=== PATIENT | male | born 1955 | race Caucasian/White ===

== ENCOUNTER 2020-02-07 09:52 | Inpatient (IN) | payer SELFPAY ==
[2020-02-07] VITALS (24 sets, daily range): BP systolic 55–121; BP diastolic 32–84; PULSE 114–130; RESP 20–52; TEMP 36.4–36.9; O2SAT 90–98; BMI 20.7
--- NOTE | 2020-02-07 09:53 | XRR_ITS ---
PROCEDURE INFORMATION: Exam: XR Chest, 1 View Exam date and time: 02/07/2020 9:55 AM Age: 64 years old Clinical indication: Chest pain; Type not specified TECHNIQUE: Imaging protocol: XR of the chest Views: Frontal portable upright view of the chest. COMPARISON: No relevant prior studies available. FINDINGS: Lungs: The lungs are clear bilaterally. The pulmonary vasculature is normal. Pleural space: No pleural effusion. No pneumothorax. Heart/Mediastinum: The heart is normal in size and contour. Bones/joints: No acute chest wall abnormality identified. XR/XR chest 1V portable 12034 IMPRESSION: No acute cardiopulmonary abnormality identified.
--- NOTE | 2020-02-07 09:54 | ECG_ITS ---
Measurements Intervals [place] Rate: 117 P: 77 CO: 128 QRS: 52 QRSD: 100 T: -42 QT: 341 QTc: 477 SINUS TACHYCARDIA POSSIBLE LEFT ATRIAL ENLARGEMENT [-0.1mV P WAVE IN V1/V2] INFERIOR MYOCARDIAL INFARCTION , PROBABLY RECENT [40+ ms Q WAVE AND/OR ST/T ABNO ABNORMALITY IN II/aVF] ACUTE AR INTERPRETATION BASED ON A DEFAULT AGE OF 40 YEARS No previous ECG available for comparison Electronically Signed On 02-07-2020 21:11:23 CDT by Maria Antonia Strange M.D. [email or web address]
[2020-02-07 10:03] LABS: ABG PCO2 30.1 mmHg (35-45); Alveolar-Arterial Oxygen Gradi 46.6 mmHg (5-10); Arterial Blood Gas Hematocrit 45.9 % (42-52); Base Excess ABG -5.1 mmol/L (-2.0-2.0); Blood Gas Allen Test Pos; Blood Gas Sample Site Radial, right; Blood Gas Sample Type Arterial; Carboxyhemoglobin 1.1 %THgb (0.4-20.1); HCO3 ABG 18.5 mmol/L (22-26); HGB O2 Sat 91.2 % (95-100); Ionized Calcium Level - ABG 1.1 mmol/L (1.1-1.4); Oxygen Device NC; Oxygen Saturation ABG 93.1; PO2 ABG 64.4 mmHg (80.0-100.0); Potassium Level - ABG 4.5 mmol/L (3.5-5.0)
--- NOTE | 2020-02-07 10:03 | W.ED.CHESTPA ---
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 He said it began yesterday at around 12 or 1230 and has been getting progressively worse until this morning when it got so bad he called EMS. Pain is in his left substernal chest area radiating to his shoulder he is short of breath with it and nauseous, he has thrown up at least once. He has no known history of coronary disease he is not a diabetic he is a lifelong smoker, no known history of hypertension or hyperlipidemia. He is not previously had any evaluation for chest pain or coronary artery disease. Does not take aspirin regularly.He is not on any anticoagulants. He denies any recent illness any recent significant change in cough or fever or upper respiratory symptoms, he does have a chronic baseline cough that he relates to his smoking. MD complaint: chest pain Onset (ago): day(s) (1 day) Timing of current episode: constant, increasing and still present Prior episodes: No Onset: during rest Pain location: substernal and left chest Quality: tightness Relieving factors: nothing Exacerbating factors: nothing Associated symptoms: Reports nausea and vomiting; Deny dyspnea or fever(s) Treatment prior to arrival: nitroglycerin (EMS gave 1 sublingual nitro noted a market drop in blood pressure, there was no significant relief of pain.) Review of Systems Const: Denies: fever, chills, body aches, change in appetite, fatigue or malaise ENMT: Denies: throat pain, ear pain, nasal discharge or nasal congestion Card: Reports: chest pain and shortness of breath on exertion; Denies: edema or shortness of breath when lying down Resp: Denies: shortness of breath, productive cough or non-productive cough GI: Reports: nausea and vomiting : Denies: flank pain, painful urination, urinary frequency or urinary urgency Skin/Breast: Denies: rash or itching PFSH ED PFSH: Social History Smoking and tobacco status: current every day smoker Physical Exam Const: GENERAL APPEARANCE: cooperative; not comfortable ORIENTATION/CONSCIOUSNESS: Yes awake, Yes oriented to person, Yes oriented to place and Yes oriented to time HENMT: COMMON NORMALS: normocephalic, head/scalp atraumatic, hearing grossly normal bilaterally and external ears normal HEAD & SCALP: normocephalic and atraumatic EXTERNAL EAR: Yes external ears normal Eye: COMMON NORMALS: PERRL, EOMs intact bilaterally, conjunctivae normal and no scleral icterus CONJUNCTIVA: Yes conjunctivae normal PUPIL: Yes PERRL Neck/C-Spine: COMMON NORMALS: full ROM, no lymphadenopathy, supple and no JVD Lymph: LYMPHATIC: no lymphadenopathy noted and no lymphedema noted Resp: COMMON NORMALS: normal respiratory effort, no retractions, no use of accessory muscles and clear to auscultation bilaterally AUSCULTATION: clear to auscultation bilaterally Cardio: COMMON NORMALS: no JVD, regular rate, regular rhythm and no murmurs RATE: regular rate RHYTHM: regular rhythm GI: COMMON NORMALS: soft to palpation and no hepatosplenomegaly AUSCULTATION: Yes normoactive bowel sounds PALPATION: Yes soft, No tender, No guarding and Yes no hepatosplenomegaly Extremity: COMMON NORMALS: normal to inspection, normal capillary refill, no clubbing, cyanosis or edema, no calf tenderness and no pedal edema Neuro: SENSORIUM/ORIENTATION: Yes oriented to person, Yes oriented to place and Yes oriented to time Skin: COMMON NORMALS: no rashes or lesions noted GENERAL SKIN EXAM: no rashes or lesions noted Course Vital Signs: Vital signs: Vital Signs Temperature 97.6 F 02/07/20 10:00 Pulse Rate 117 H 02/07/20 10:00 Respiratory Rate 28 H 02/07/20 10:00 Blood Pressure 103/77 02/07/20 10:00 Pulse Oximetry 91 02/07/20 10:00 MDM - Chest Pain MDM Narrative: Medical decision making narrative: EKG shows acute inferior ST elevation [place]. Patient is being prepped to go to the Photographic Intelligence Officer. He is getting 600 to prop Plavix 4000 of heparin IVs have been started he will be given gentle fluid bolus I have talked to Dr. Marshall who is on STEMI call who is on the way to see him. Photographic Intelligence Officer has been notified. Lab Data: Labs: Lab Results 02/07/20 Range/Units 09:52 Specimen Type Arterial Sample Site Radial, right ABG pH 7.40 (7.35-7.45) ABG pCO2 30.1 L (35-45) mmHg ABG pO2 64.4 L (80.0-100.0) mmH g ABG HCO3 18.5 L (22-26) mmol/L ABG O2 Saturation 93.1 ABG Base Excess -5.1 L (-2.0-2.0) mmol/ L Roosevelt Test Pos A-a O2 Gradient 46.6 H (5-10) mmHg Hematocrit 45.9 (42-52) % Hgb O2 Saturation 91.2 L (95-100) % Carboxyhemoglobin 1.1 (0.4-20.1) %THgb Methemoglobin 1.0 (0.4-1.5) % Total Hemoglobin 15.0 (14-18) g/dL Sodium 138.0 (131-143) mmol/L Potassium 4.5 (3.5-5.0) mmol/L Glucose 217.0 H (70-115) mg/dL Ionized Calcium 1.1 (1.1-1.4) mmol/L O2 Delivery Device Nc O2 Liters/Min 2.0 % Frame Pulley Mortising Machine Operator ID [email or web address] Discharge Plan Discharge Patient Disposition: Admitted As Inpatient Clinical Impression: ST elevation myocardial infarction (STEMI), COPD (chronic obstructive pulmonary disease) Condition: Stable Prescriptions: No Action No Known Home Medications RF: 0 Coding Level of Care Code ED Tuft Machine Operator for Juniorg Isael
[2020-02-07] MEDS: heparin 5,000 unit/mL INJ 1 mL 4000 UNIT IV (10:05)
[2020-02-07] MEDS: clopidogrel 300 mg Tablet 600 MG PO (10:06)
--- NOTE | 2020-02-07 10:06 | XACV_ITS ---
Wt: 57 kg Gender: Male : 1955 Exam Priority: Routine Procedure(s): Procedure Description: Diagnostic procedure Procedure Description: PCI procedure Procedure Description: Drug Eluting Coronary Stent Procedure Description: Coronary Angiography Diagnostic Cath Status: Emergency Diagnostic Findings LM has 0% stenosis. CX has 0% stenosis. dLAD: Moderate 50% stenosis, MELODIE: 3 flow. 2nd OM: Severe 90% stenosis, MELODIE: 3 flow. pRCA: Moderate 50% stenosis, MELODIE: 3 flow. Mid Right Coronary Artery: Severe 95% stenosis, MELODIE: 2 flow. Distal Right Coronary Artery: Severe 85% stenosis, MELODIE: 2 flow. Coronary angiography shows right dominance. PCI Status: Emergency PCI Indication: STEMI - Immediate PCI for STEMI Interventional Findings Mid Right Coronary Artery: 95% stenosis treated with AB MINI TREK 2.00X20 RX BALLOON and MDT R CHILANGO 2.5X30 LETICIA. 0% residual stenosis, MELODIE: 3 flow. Distal Right Coronary Artery: 85% stenosis treated with MDT R CHILANGO 2.25X15 LETICIA. 0% residual stenosis, MELODIE: 3 flow. Conclusions #1 Normal left main #2 LAD has luminal irregularity without significant stenosis#3 LCx is nondominant small caliber vessel with obtuse marginal which is small caliber and size vessel has 90% multiple stenosis not amenable to intervention#4 RCA has mid 95-99% stenosis and distal 85% stenosis which is the culprit vessel . 64-year-old male presented with chest pain and shortness of breath. He admits to shortness of breath going on for last 2-3 days. 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 He also admits to often on chest pain with become more consistent in last 2-3 hours. Twelve-lead EKG was suggestive of mild inferior ST elevation. Denies any fever but admits to nausea and vomiting. Denies cough. He was immediately taken to the Facs Teacher. X-ray chest did not show any infiltrates. There is severe coronary artery disease with two vessel disease. Mid Right Coronary Artery was treated with Balloon and Drug Eluting Stent. Distal Right Coronary Artery was treated with Drug Eluting Stent. Recommendations 1-Return to inpatient for close monitoring and routine cath care2-Risk factor modification for secondary prevention3-Statin and aspirin 81 mg life-long, if tolerated4-Patient was pre-loaded with 600 mg of Plavix, continue Plavix 75mg p.o. daily for at least one year. We will assess at the end of one year again to continue if further or not5-Continue optimal medical management6-Follow up with Dr. Strange in four weeks and your primary care in 10 days. Interventional RX Recommendation: PCI w/o planned CABG Diagnostic RX Recommendation: PCI w/o planned CABG Pressures Phase:Rest AO : 101 mmHg / 33 mmHg ( 50 mmHg ) @ 5:46:00 AM 82 mmHg / 65 mmHg ( 73 mmHg ) @ 5:47:00 AM 45 mmHg / 38 mmHg ( 41 mmHg ) @ 5:59:00 AM 96 mmHg / 81 mmHg ( 89 mmHg ) @ 6:00:00 AM 88 mmHg / 67 mmHg ( 78 mmHg ) @ 6:01:00 AM 96 mmHg / 64 mmHg ( 78 mmHg ) @ 6:04:00 AM 70 mmHg / 49 mmHg ( 60 mmHg ) @ 6:08:00 AM 83 mmHg / 58 mmHg ( 69 mmHg ) @ 6:14:00 AM Clinical Evaluation EBL: 5mL-10mL Procedural Details Procedure Consent Obtained. Admit Source: Emergency department. Identified patient by full name and date of as verbalized by the patient/guarantor. Pre-Procedure Time Out. Does the consent match the physician's order: Yes. Accurate & Complete Informed Consent: Yes. Inpatient/Outpatient History & Physical on Chart: N/A Emergent. Visualize and Verify Site with Patient/Guarantor: N/A. Relevant Radiology Images available: N/A Emergent. The risks, benefits, and alternatives of sedation and/or procedure were discussed by physician. The patient agrees to continue. Procedure started. Correct patient, site and procedure confirmed by cath team. PERRLA. Strong, equal hand link wire fabric machine operator bilaterally. Lungs clear x 5 lobes. IV Site on Arrival: 18 gauge in the right anticubital. IV Site on Arrival: 18 gauge in the left anticubital. IV Fluids: 0.9% NaCl at KVO. 0 mL infused prior to label stitcher. Pre Procedural Pulses: right radial was 1+. Oxygen started at 2liters/min via nasal canula. bilateral groins was prepped with chloroprep then draped in the usual sterile fashion. right radial was prepped with chloroprep then draped in the usual sterile fashion. Physician notified. Baseline sample Acquired. HR: 120 BPM. Equipment: 6F - Radial. Physician arrived. Physician scrubbed in. Immediate Pre-Procedure Time Out. Correct Patient: Yes; Correct Procedure: Yes; Correct Site: Yes; Correct Patient Position: Yes; Correct Supplies: Yes; Dried Flammable Prep: Yes; Blood Products Available: Yes;. Lidocaine 1% infiltrated to the right radial. Unable to obtain radial access. MD attempting to gain access in the Femoral artery. Arterial access obtained with micropuncture set. 6 bahamian JR 4 guide catheter was inserted over the wire. Becker guidewire was advanced through the guide catheter to lesion in the mid RCA. balloon inserted. Inflation number : 1 A AB MINI TREK 2.00X20 RX BALLOON was prepped and advanced across the Mid RCA , then inflated to 8 NATHAN for 0:06 seconds. Inflation number: 2 The AB MINI TREK 2.00X20 RX BALLOON was reinflated across the Mid RCA, to 8 NATHAN for 0:05 seconds. Inflation number: 3 The AB MINI TREK 2.00X20 RX BALLOON was reinflated across the Mid RCA, to 8 NATHAN for 0:03 seconds. Inflation number: 4 The AB MINI TREK 2.00X20 RX BALLOON was reinflated across the Mid RCA, to 8 NATHAN for 0:04 seconds. Results checked, balloon out. Stent inserted. Balloon removed. Second stent inserted. Inflation Number : 5 A MDT R CHILANGO 2.5X30 LETICIA -Lot Number# [id number] was prepped and advanced across the Mid RCA. The stent was deployed at 14 NATHAN for 0:34 seconds. Inflation Number : 1 A MDT R CHILANGO 2.25X15 LETICIA -Lot Number# [id number] was prepped and advanced across the Dist RCA. The stent was deployed at 14 NATHAN for 0:14 seconds. results checked. Results checked. Wire removed. ACT drawn. Results 185 seconds. Therapeutic limits - pre-heparin administration 90-150 seconds and monitoring heparin during a vascular procedure >250 seconds. Guide removed. A JJ 6F JL4 100cm Diagnostic Catheter was advanced over the wire and used for Left coronary angiography. Multiple views taken of left coronary artery. Catheter removed. A Suture was successful obtaining hemostatsis at the Right Femoral artery insertion site. Sheath(s) sutured into position with 2-0 silk and sterile 4x4's and Op-site applied over the site. No oozing or signs and symptoms of hematoma noted. Arterial sheath flushed and connected to tranducer and pressure bag with heparinized saline. Post Procedure: Pulses reassessed and unchanged. PERRLA. Strong, equal hand link wire fabric machine operator bilaterally. No VTE prophylaxis required. Fluoro: 5:08. [id number]. Contrast type used: Omnipaque 300 mgI/mL, 500 mL bottle. Medication's Wasted: Lidocaine 1% = 10 mL. Medication's Wasted: Heparin = 2000 units. Total IV fluids: 700 mL. Medication's Wasted: Cardene 24.5 mg. PCI Indication: STEMI. Post-op diagnosis: STEMI. Complications: None. Estimated blood loss: 5mL-10mL. Procedure completed. Patient transferred by bed to ICU. Site: Right Femoral artery Sheath Size: 6 Fr Hemostasis Method: Suture Hemostasis Success: Successful Procedure Medications Start: 10:37 AM Stop: 10:37 AM Medication: Fentanyl Amount: 25 mcg Route: I.V. Start: 10:37 AM Stop: 10:37 AM Medication: Versed Amount: 1 mg Route: I.V. Start: 10:50 AM Stop: 10:50 AM Medication: Heparin Amount: 4000 units Start: 10:50 AM Stop: 10:50 AM Medication: Aggrastat 12.5 mg/250 mL Amount: 29 ml Route: I.V. bolus Start: 10:50 AM Stop: 10:50 AM Medication: Aggrastat 12.5 mg/250 mL Amount: 10.4 ml/hr Route: I.V. bolus Start: 10:58 AM Stop: 10:58 AM Medication: Epinephrine Amount: 0.5 mg Route: I.V. Start: 11:01 AM Stop: 11:01 AM Medication: Zofran (ondansetron) Amount: 4 mg Route: I.V. Start: 11:05 AM Stop: 11:05 AM Medication: Cardene Amount: 500 mcg Start: 11:09 AM Stop: 11:09 AM Medication: Fentanyl Amount: 25 mcg Route: I.V. Start: 11:12 AM Stop: 11:12 AM Medication: Heparin Amount: 3000 units Start: 11:14 AM Stop: 11:14 AM Medication: 0.9% Saline Amount: 999 ml/hr Route: I.V. drip Start: 11:22 AM Stop: 11:22 AM Medication: 0.9% Saline Route: I.VMeera flores I, the attending physician, have reviewed and verified all procedure medications. Yes, all medications given per verbal order Report Signatures Finalized by:Maria Antonia Strange MD on 02/21/2020 4:49:44 PM
[2020-02-07] MEDS: sodium chloride 0.9% 1,000 ML 999 ML IV (10:12)
[2020-02-07] MEDS: morphine 4 mg/mL SDV 1 mL IVP (10:12)
[2020-02-07] MEDS: ondansetron 2 mg/ML SDV 2 mL 4 MG IVP ×3 (10:14→18:28)
[2020-02-07 10:18] LABS: Basophils % 0.2 %; Hematocrit 44.2 % (42.0-52.0); Hemoglobin 14.2 g/dL (11.7-16.6); Lymphocytes # 0.7 10^3/uL (0.8-4.8); Lymphocytes % 3.9 %; Mean Corpuscular HGB Conc 32.1 g/dL (30.0-36.0); Mean Corpuscular Volume 96.5 fL (80-94); Mean Platelet Volume 10.4 fL (7.4-10.4); Monocytes # 1.2 10^3/uL (0.2-0.9); Monocytes % 6.7 %; Neutrophils # 16.4 10^3/uL (1.8-7.7); Neutrophils % 88.3 %; Nucleated Red Blood Cells % 0 %; Platelet Count 232 10^3/cmm (130-400); Red Blood Count 4.58 10^6/uL (4.1-5.3); Red Cell Distribution Width 13.2 % (12.1-15.1); White Blood Count 18.6 10^3/uL (4.0-10.0)
[2020-02-07 10:43] LABS: D Dimer 7.85 ug/mIFEU (0-0.59)
[2020-02-07 10:47] LABS: Alanine Aminotransferase 41 U/L (0-41); Alkaline Phosphatase 74 IU/L (40-130); Anion Gap 28.6 (5-19); Aspartate Amino Transferase 96 U/L (0-40); Blood Urea Nitrogen 29 mg/dL (8-23); Calcium 9.5 mg/dL (8.5-10.5); Carbon Dioxide 19 mmol/L (22-29); Chloride 95 mmol/L (98-107); Globulin 3.8 g/dL (1.3-4.6); Glucose 259 mg/dL (65-115); Lipase 8 U/L (13-60); Magnesium 2.1 mg/dL (1.7-2.3); Osmolality Calculated 292 mOsm/kg (285-295); Potassium 4.6 mmol/L (3.5-5.1); Sodium 138 mmol/L (136-145); Thyroid Stimulating Hormone 2.17 uIU/mL (0.27-4.20); Total Bilirubin 0.9 mg/dL (0.15-1.2); Total Protein 7.8 g/dL (6.6-8.7)
[2020-02-07 10:53] LABS: Troponin(5th) Baseline 3770 ng/mL (0-15)
--- NOTE | 2020-02-07 12:01 | P.HP_ITS ---
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 According to him for the last couple of days he was feeling nausea had episodes of vomiting denies any fever but admits to shortness of breath and cough which is not new most likely smoker. He did not pay much attention until this morning when he was driving through [place] chest pain became severe deep in the lungs as per himself therefore he decided to call 911. From the truck stop he was brought in here. D-dimer was also elevated , he was taken to the Hemming And Tacking Machine Operator. He was found to have mid and distal 100% occluded RCA treated with 2 drug-eluting stents. Patient upon presentation was hypotensive during the Hemming And Tacking Machine Operator systolic blood pressure further dropping to 60s he was given IV fluid and started on pressor. I also consulted our medicine colleagues to help us in the case, due to suspicion for pulmonary embolism we decided to continue heparin. 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 He is in mildly distressed NECK: Evaluated jugular vein distension. HEENT: No cyanosis. No icterus. No pallor. HEART: Regular S1 and S2. No murmur, rub or gallop. LUNGS: Clear to auscultate bilaterally. ABDOMEN: Soft, nontender and nondistended. Positive bowel sounds. No guarding, rebound or tenderness. CENTRAL NERVOUS SYSTEM: Grossly nonfocal. EXTREMITIES: Lower extremities without edema bilaterally. Data : 02/07/20 14:40 02/07/20 10:13 A&P Assessment and plan (1) COPD (chronic obstructive pulmonary disease): As per medicine Status: Acute Qualifiers: COPD type: COPD with acute lower respiratory infection Qualified Code(s): J44.0 - Chronic obstructive pulmonary disease with (acute) lower respiratory infection (2) ST elevation myocardial infarction (STEMI): Status post drug-eluting stents x 2 distal and mid RCA for 100% occlusion.MELODIE-3 flow was observed. Left main LAD has luminal irregularities circumflex has distal subtotal occlusion which is a small caliber vessel not amenable to intervention. Continue aspirin Plavix once blood pressure improved add beta chris Status: Acute Qualifiers: Involved coronary artery: right coronary artery Qualified Code(s): I21.11 - ST elevation (STEMI) myocardial infarction involving right coronary artery (3) Respiratory distress: Patient is highly suspicious for pulmonary embolism, tachycardic short of breath with clear lungs. We will obtain echocardiogram to assess RV strain. Cannot perform CT angiogram due to renal dysfunction. Dr. Murphy was consulted and he advised continuation of heparin drip. We also decided to send COVID 19 past since he is high risk and short of breath with respiratory symptoms. Status: Acute (4) Hypotension: Could be multifactorial including cardiogenic shock and secondary to pulmonary embolism with RV failure. Continue pressor continue IV fluid,, echocardiogram to rule out RV strain with limited views. Status: Acute Qualifiers: Hypotension type: unspecified hypotension type Qualified Code(s): I95.9 - Hypotension, unspecified (5) Acute renal failure (ARF): We are not sure patient baseline renal function. For now we will continue IV hydration, Could it be acute tubular necrosis secondary to hypotension presented with acute coronary syndrome possible. We will continue to monitor creatinine. Status: Acute Attestations Medical Necessity Statement*: I'm expecting his stay to cross more than 2 midnights Coding Level of Care Code New Pt Acute Mail Sorter for Chg Fwd Patient Type New History Detailed Exam Detailed Medical Decision Making High Complexity Diagnoses COPD (chronic obstructive pulmonary disease) J44.0 COPD type: COPD with acute lower respiratory infection ST elevation myocardial infarction (STEMI) I21.11 Involved coronary artery: right coronary artery Respiratory distress R06.03 Hypotension I95.9 Hypotension type: unspecified hypotension type Acute renal failure (ARF) N17.9
[2020-02-07 13:22] LABS: Glucose Point of Care 204 mg/dL (70-110)
--- NOTE | 2020-02-07 13:27 | USCV_ITS ---
Mahesh Parker Age: 64 Gender: M : 1955 Exam Date: 02/07/2020 16:16 Ordering Phys: Troy Schmitt MD Technologist: Dori Chiu [place]am Location[place] [facility] [place]ication: mi BP: 96 / 25 HR: Rhythm: Sinus Technical Quality: MEASUREMENTS (Male / Female) Normal Values FINDINGS Left Ventricle Mildly reduced left ventricle function.mildly decreased left ventricular systolic function. Left ventricular ejection fraction is estimated at 50 %. , flattened septum in diastole consistent with right ventricle volume overload. Patient is tachycardic Right Ventricle Mildly increased right ventricular size. Right Atrium Moderately increased right atrial size. Left Atrium Normal left atrial size. Mitral Valve Mitral valve opening and closing fine papillary muscles appeared to be intact Aortic Valve Tricuspid Valve Pulmonic Valve Pericardium Aorta CONCLUSIONS Please note that this is a limited study as patient has tachycardia and with question of Covid infection (pending result) therefore we tried to minimize the echo time 1-Mildly reduced left ventricle function.mildly decreased left ventricular systolic function. Left ventricular ejection fraction is estimated at 50 %. , flattened septum in diastole consistent with right ventricle volume overload. Patient is tachycardic. 2-Mildly increased right ventricular size. 3-Moderately increased right atrial si. 4-Mitral valve opening and closing fine papillary muscles appeared to be intact. 5-There is no pericardial effusion. 6-There are no prior echocardiogram studies to compare. Maria Antonia Strange MD (Electronically Signed) Final Date: 07 February 2020 19:38 S
[2020-02-07 13:39] LABS: Troponin 5 2HR 4054 ng/mL (0-15); Troponin 5 2HR Delta 284 ABS# (0-10)
[2020-02-07 14:49] LABS: Platelet Count 244 10^3/cmm (130-400)
[2020-02-07 15:09] LABS: Partial Thromboplastin Time 107.2 SECONDS (23.9-36.7)
--- NOTE | 2020-02-07 15:28 | P.CONIM_ITS ---
Providers/Reason For Consult Consulting Physican/Specialty*: Troy Schmitt MD Reason for Consult*: Leukocytosis Requesting Physcian: Dr. Strange Attending Physician: Maria Antonia Strange MD History of Present Illness History of Present Illness Parker Aragon is a 64 year old male presented with chest pain since noon yesterday. He points at low sternal area centrally with pleuritic component every time he coughs or breathes deeply. he was sitting when this happened. His pain is pretty much constant and lasted through the whole day yesterday and night. He denies any other alleviating or aggravating factors. He has been diaphoretic and had one episode of vomiting this morning prior to presentation. He denies hematemesis, melena or hematochezia. He has occasional non-prodictive cough mostly when laying down. 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 He has been in [place] prior to that and initially came from [facility]. He denies lower extremity edema. In ED he was diagnosed with STEMI and had 2 stents placed to RCA. He was hypotensive, tachycardic and tachypneic. He was started on Levophed gtt. During my evaluation he continues to have mild substernal chest pain unless he takes deep breath in which exacerbates his pain. Discussed with Dr. Strange and we will start Heparin gtt for possible PE, without load as he received 11k units during procedure. Hedenies any history of diabetes, heart disease or stroke. His last work related physical was in August last year. Review of Systems Narrative: except as mentioned above. Const: Denies: fever or chills Eyes: Denies: change in vision ENMT: Denies: throat pain or change in hearing Card: Reports: chest pain; Denies: edema or lightheadedness Resp: Denies: shortness of breath or productive cough GI: Reports: nausea and vomiting; Denies: abdominal pain, difficulty swallowing, diarrhea, constipation, blood in stool or black tarry stool Musc: Denies: joint pain or joint swelling Skin/Breast: Denies: rash or redness Neuro: Denies: headache or weakness in extremities Psych: Denies: depression or suicidal ideation Endo: Denies: excessive sweating Javier/Lymph: Denies: easy bleeding or tender lymph nodes All/Imm: Denies: throat swelling Meds/Allergies Home Medications and Allergies Home Medications Medication Instructions Recorded Confirmed Type No Known Home Medications 02/07/20 02/07/20 History Allergies Allergy/AdvReac Type Severity Reaction Status Date / Time No Known Allergies Allergy Verified 02/07/20 09:57 PFSH Acute PFSH: Family History (Updated 02/07/20 @ 15:59 by Troy Schmitt MD) Father CAD (coronary artery disease) Stroke Mother No problems noted. 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 Vitals/I&O/Wt Last Vital Signs Temp 98.4 F 02/07/20 12:24 Pulse 126 H 02/07/20 13:45 Resp 22 H 02/07/20 13:45 BP 98/71 02/07/20 13:45 Pulse Ox 93 02/07/20 13:45 02/07/20 02/07/20 02/07/20 06:59 14:59 22:59 Intake Total 1000 / 1000 Balance 1000 / 1000 Weight last 48 hrs Weight 60.3 kg Weight 56.699 kg Physical Exam Const: COMMON NORMALS: no apparent distress, oriented x3 and alert GENERAL APPEARANCE: diaphoretic HENMT: COMMON NORMALS: normocephalic and head/scalp atraumatic HEAD & SCALP: normocephalic and atraumatic Eye: COMMON NORMALS: EOMs intact bilaterally, conjunctivae normal and no scleral icterus CONJUNCTIVA: Yes conjunctivae normal Neck/C-Spine: COMMON NORMALS: no lymphadenopathy and no meningeal signs Lymph: LYMPHATIC: no lymphadenopathy noted Chest: COMMONS NORMALS: palpation of chest normal Resp: COMMON NORMALS: no use of accessory muscles and clear to auscultation bilaterally AUSCULTATION: clear to auscultation bilaterally Cardio: COMMON NORMALS: regular rate, regular rhythm and no murmurs JUGULAR VENOUS DISTENTION: JVD positive to the level of the earlobe RATE: regular ra te RHYTHM: regular rhythm HEART SOUNDS: normal S1 and S2 OTHER: No lower extremity edema GI: COMMON NORMALS: soft to palpation and non-tender PALPATION: Yes soft RECTAL EXAM: Yes deferred : COMMON NORMALS: Yes no CVA tenderness BLADDER/KIDNEY EXAM: Yes no CVA tenderness Back/Pelvis: COMMON NORMALS: no CVA tenderness and thoracic and lumbar spine normal to inspection Extremity: COMMON NORMALS: normal to inspection and normal capillary refill Neuro: COMMON NORMALS: oriented x3 and no focal motor deficits SENSORIUM/ORIENTATION: Yes alert MENINGEAL SIGNS: Yes no meningeal signs Psych: COMMON NORMALS: mental status grossly normal, thought process normal and cooperative THOUGHT PROCESS: normal thought process Skin: COMMON NORMALS: no rashes or lesions noted GENERAL SKIN EXAM: no rashes or lesions noted A&P Assessment and plan (1) Acute renal failure (ARF): Status: Acute (2) Hypotension: Status: Acute Qualifiers: Hypotension type: unspecified hypotension type Qualified Code(s): I95.9 - Hypotension, unspecified (3) Severe sepsis with acute organ dysfunction: Status: Acute (4) ST elevation myocardial infarction (STEMI): Status: Acute Qualifiers: Involved coronary artery: right coronary artery Qualified Code(s): I21.11 - ST elevation (STEMI) myocardial infarction involving right coronary artery Additional A&P Information Therapeutic anticoagulation. Obtain Echocardiogram, lower extremity venous US and kidney US. V/Q scan for further evaluation. Dr. Strange will evaluate echo for evidence of right heart strain and we may need to perform CTA chest despite elevated creatinine. Will start patient on antibiotics for now. Obtain blood cultures, check UA. Consult Attestations Medical Necessity Statement: Patient with sepsis and OH requires ICU. Critical Care Time: Critical Care Time (min): 20 Coding Level of Care Code Acute [employer] for [facility] Fwd Diagnoses Acute renal failure (ARF) N17.9 Hypotension I95.9 Hypotension type: unspecified hypotension type Severe sepsis with acute organ dysfunction A41.9; R65.20 ST elevation myocardial infarction (STEMI) I21.11 Involved coronary artery: right coronary artery
[2020-02-07] MEDS: heparin drip 25,000 UNIT/500 ML PREMIX 15.9 UNIT IV (15:31)
[2020-02-07 15:34] LABS: Troponin 5 6HR 4432 ng/mL (0-15); Troponin 5 6HR Delta 662 ng/L (0-12)
[2020-02-07] MEDS: sodium chloride 0.9% 1,000 ML 100 ML IV (15:35)
--- NOTE | 2020-02-07 18:06 | P.DES_ITS ---
Discharge Providers DDS Date of Admission: 02/07/20 12:02 Date Summary Completed: 02/08/20 Attending Provider at Admission: Maria Antonia Strange MD Time of : 17:36 Attending Provider at Discharge: Maria Antonia Strange MD DS Diagnoses Hospital Diagnoses (1) Acute renal failure (ARF): (2) Hypotension: Qualifiers: Hypotension type: unspecified hypotension type Qualified Code(s): I95.9 - Hypotension, unspecified (3) Severe sepsis with acute organ dysfunction: (4) ST elevation myocardial infarction (STEMI): Qualifiers: Involved coronary artery: right coronary artery Qualified Code(s): I21.11 - ST elevation (STEMI) myocardial infarction involving right coronary artery Reason for Visit Reason for Visit: Reason For Visit: Chest Pain Summary Date and Time of : Date of : 02/07/20 Time of : 17:36 Summary: Summary: This morning patient was brought to emergency room with chest pain and shortness of breath, STEMI pager was alerted, patient was immediately taken to the [facility] found to have occluded RCA in mid and distal segment treated with 2 drug- eluting stent. Post catheterization patient remained tachycardiac and short of breath. COVID 19 test was sent, patient was ordered for IV antibiotics , due to high ssuspicion of pulmonary embolism IV heparin was continued. Bedside limited echo was obtained as due to acute renal failure CTA couldn't performed. Echocardiogram showed normal size of right ventricle with moderately elevated right atrial pressure. Patient continues to sat into 90s on 2 L oxygen. For hypotension patient remains on IV fluid and Levophed, Systolic blood pressure remains around 100. Labs were sent to rule out acute bleed. In the meantime I was called by ICU nurse and overhead pager that Patient stopped breathing and went into ventricle fibrillation. When I arrived within couple of minutes, Dr. Domingo from the ER already was intubating while CPR was in progress, Please see detail in CPR document. Code was run according to ACLS protocol, Despite of more than 26 minutes of continuous code patient could not be revived. After discussion with Code team code was called off at 1736 and patient was pronounced . Cause of was cardiopulmonay arrest (Respiratory failure) I personally informed patient's daughter through phone.Awaiting COVID result for Autopsy. Additional Data: Confirmation of as documented by pronouncing clinician: no pulse, no respirations, no heart sounds and pupils fixed and dilated Family: contacted Additional persons at bedside: nursing staff Attending/PCP notified?: I am attending Was code activated?: Yes Autopsy requested?: Yes Advance directives?: No Hospice patient?: No Discharge Plan Discharge Patient Disposition: Condition: Stable Prescriptions: No Action No Known Home Medications RF: 0 Discharge Date/Time: 02/07/20 17:35 DS Attestations Time Spent in /Discharge Care*: critical care time Quality - AMI: AMI present?: Yes Quality - Stroke: CVA present?: No Symptom Onset Unknown: No Quality - VTE: VTE present?: Yes Deep Vein Thrombosis/Pulmonary Embolism Present on Admission: No Coding Level of Care Code New 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
[2020-02-07] MEDS: etomidate 10 ML 100 MG (18:29)
[2020-02-07] MEDS: succinylcholine 20 mg/mL SDV 10mL 200 MG (18:29)
[2020-02-07] MEDS: pantoprazole 40 mg SDV IVP (18:29)
--- NOTE | 2020-02-07 18:50 | PC.NURSE ---
1217 Pt arrived to the unit from the technology lab teacher. Pt placed in room 5 on isolation for r/o COVID 19. Pt AAOX3, pleasant and cooperative. Pt would not answer with a yes/no question when ask if he was having chest pain or not. Pt would say that he was uncomfortable when he was moved. Vascular checks to the right groin and and right pedal pulse [id number], all pulses were strong and palpable, skin warm/dry with no hematoma to the right groin. Pt had Levo infusing at 4mcg since arrival to the unit until code. Heparin gtt had been started as ordered at 14units/kg/hr. NS @ 100mls/hr. Sheath to right groin was patent and was used as an art line for close monitoring of his BP. This nurse was at the bedside with Yamile Blank RN attempting to draw a blood culture, talking with the pt, and both nurses repeatedly ask the pt if he was having any chest pain and he replied he was having trouble breathing. Pt resp increased to high 40's. Dr. Gray and Keshia were both in to see the pt and had left the room to discuss further treatment options for the pt. The pt stopped talking and his eyes dilated and starting quivering. Pt had been complaining of nausea and was medicated X3. Pt had been drying heaving prior to code. Pt stopped breathing at 1711 and a code was called. CPR started immediately, see code flow sheet for further details.
--- NOTE | 2020-02-07 19:01 | PC.NURSE ---
1705-- GOWNED UP TO ASSIST WITH LAB DRAW, UNALBE TO OBTAIN SPECIMEN D/T PT PULLING ARM AWAY & EXTREMITY BEING COOL TO TOUCH. BP LOW, NEEDED TO HAVE A BM, PT TACHYPNEIC, DIAPHORETIC, DENIES ANY SIGNIFICANT CHEST PAIN, JUST DISCOMFORT WITH MOVEMENT. PT VERY RESTLESS, NAUSEATED/DRY HEAVES. WHILE POSITIONING PT IN BED HE BECAME UNRESPONSIVE & NO PULSE. COMPRESSIONS STARTED. SEE CPR FLOW SHEET FOR MEDICATIONS. TIME OF 1736. JERMAIN RT & DR LINDSAY IN ROOM TO INTUBATE
--- NOTE | 2020-02-07 19:33 | PC.NURSE ---
called patients brother rosa to give the number for the propeller inspector to request the autopsy to be preformed he said he will call and let us know what they decide and was very appreciative of the information.
--- NOTE | 2020-02-07 21:15 | PC.NURSE ---
patient left with [facility] paperwork signed and filed and brother rosa notified that patient has left facility.
[2020-02-08 14:22] LABS: Coronavirus Lab Test PTC NOT DETECTED
== END 2020-02-07 17:35 | disposition expired | DRG 871 ==
LOC: ER 10:25 → ICU 12:04
PROVIDERS: Nurse Practitioner Family; Admitting Provider Internal Medicine Cardiovascular Disease; Emergency Provider Family Medicine; Visit Provider Internal Medicine Cardiovascular Disease
DX: A41.9 Sepsis, unspecified organism (principal); R65.21 Severe sepsis with septic shock; I21.11 ST elevation (STEMI) myocardial infarction involving right coronary artery; N17.9 Acute kidney failure, unspecified; F17.210 Nicotine dependence, cigarettes, uncomplicated
CPT/HCPCS: 12345; 36415; 36416; 36600; 71045; 80051; 80053; 82810; 82962; 83690; 83735; 83986; 84443; 84484; 85018; 85025; 85049; 85347; 85378; 85730; 87040; 87635; 93005; 93308; 93454; 96374; 96375; 99282; C1725; C1769; C1874; C1887; C1894; C9113; C9600; C9601; J0171; J0330; J0461; J1644; J2001; J2250; J2270; J2405; J3010; J3246; J3490; J7030; Q9967